=== PATIENT | female | born 1990 | race Caucasian/White ===

== ENCOUNTER 2019-10-20 10:49 | Emergency (ER) | payer MEDICAID, SELFPAY ==
[2019-10-20 10:54] VITALS: PULSE 95; RESP 16; TEMP 36.4; O2SAT 99; BMI 23.8
--- NOTE | 2019-10-20 11:00 | ED_ITS ---
Entered by Haven Albrecht, acting as scribe for HPI - Syncope General: Chief Complaint: Syncope Stated Complaint: Fainted Time Seen by Provider: 10/20/19 10:55 Source: patient Mode of arrival: ambulatory Limitations: no limitations History of Present Illness: HPI narrative: 29 yo Female presents to ED with complaint of syncope. Pt states that she started feeling sick and nauseated so she went to the bathroom and sat down on the toilet. Pt states that she reached for the trash can because she felt like she was going to throw up. Pt states that her vision went out, her hearing went out, and she slid off the toilet and into the floor. Pt states that she didn't hurt herself. Pt states that she has felt fine until she woke up this morning and she has just felt nauseated all morning. Pt states that she was told that her iron was a little low before but she just recenlty had a blood draw done and her iron was up to normal limits. MD complaint: loss of consciousness and felt faint Onset (ago): hour(s) (Just prior to arrival) Prodromal symptoms: nausea/vomiting Witnessed: Yes - by Bystander Context: at rest Injuries sustained associated with event: none Associated symptoms: Reports nausea; Deny abdominal pain, chest pain or fever(s) Treatments prior to arrival: none Review of Systems General: Reports: 10 or more systems reviewed and unremarkable except in HPI and below Const: Denies: fever, chills or body aches Eyes: Denies: change in vision, blurry vision or blind spots ENMT: Denies: throat pain, hoarseness, mouth pain or swelling of lips/tongue Card: Denies: chest pain, palpitations, irregular heart rhythm or swelling of feet/ankles Resp: Denies: shortness of breath, productive cough or non-productive cough GI: Reports: nausea; Denies: abdominal pain or vomiting : Denies: flank pain, difficulty urinating, painful urination, urinary frequency or urinary urgency Musc: Denies: neck pain, back pain, extremity pain or extremity swelling Skin/Breast: Denies: rash, itching or redness Neuro: Reports: other (syncopal episode) Psych: Denies: anxiety or loss of interest Endo: Denies: excessive urination, excessive thirst or tired all the time Efraín/Lymph: Denies: easy bruising or easy bleeding PFSH ED PFSH: Statuses (acute, chronic, etc) shown below reflect problem list status as previously entered and may not be historically accurate Surgical History History of cholecystectomy (Acute) Social History Smoking and tobacco status: never smoked Physical Exam Const: COMMON NORMALS: no apparent distress, average body habitus, oriented x3, no limitations, healthy appearing, alert and well nourished HENMT: COMMON NORMALS: normocephalic, head/scalp atraumatic, hearing grossly normal bilaterally, external ears normal, EAC's normal, TM's normal bilaterally, external nose normal, nasal mucous membranes and turbinates normal, moist oral mucous membranes, oropharynx normal, dentition normal and gingiva normal HEAD & SCALP: normocephalic and atraumatic NOSE: external nose normal and nasal mucous membranes and turbinates normal EXTERNAL EAR: Yes external ears normal EXTERNAL AUDITORY CANAL: EAC's normal TYMPANIC MEMBRANE: TM's normal bilaterally Eye: COMMON NORMALS: PERRL, EOMs intact bilaterally, conjunctivae normal, no scleral icterus, no papilledema, normal visual ulloa by confrontation and fundi normal bilaterally CONJUNCTIVA: Yes conjunctivae normal PUPIL: Yes PERRL DIRECT OPHTHALMOSCOPY: Yes no papilledema and Yes fundi normal bilaterally Neck/C-Spine: COMMON NORMALS: full ROM, no lymphadenopathy, supple, no meningeal signs, no JVD, thyroid normal and no carotid bruits THYROID: thyroid normal Chest: COMMONS NORMALS: inspection of chest normal and palpation of chest normal Resp: COMMON NORMALS: normal respiratory effort, no retractions, no use of accessory muscles, clear to auscultation bilaterally and percussion normal AUSCULTATION: clear to auscultation bilaterally PERCUSSION: percussion normal Cardio: COMMON NORMALS: no JVD, regular rhythm, S1 normal heart sound, S2 normal heart sound, no gallops, no clicks, no murmurs, no rub and peripheral pulses 2+ throughout; negative for regular rate RATE: abnormal rate and tachycardic RHYTHM: regular rhythm HEART SOUNDS: S1 normal and S2 normal PERIPHERAL PULSES: pulses 2+ throughout GI: COMMON NORMALS: normal to inspection, nondistended, normoactive bowel sounds, soft to palpation, non-tender, no hepatosplenomegaly, no masses and no bruits PALPATION: Yes soft and Yes no hepatosplenomegaly : COMMON NORMALS: Yes no CVA tenderness and Yes external appearance normal BLADDER/KIDNEY EXAM: Yes no CVA tenderness Back/Pelvis: COMMON NORMALS: no CVA tenderness, thoracic and lumbar spine normal to inspection, no thoracic nor lumbar tenderness, thoraco-lumbar ROM normal and straight leg raise negative bilaterally Extremity: COMMON NORMALS: normal to inspection, full ROM, normal capillary refill, no joint enlargement, no clubbing, cyanosis or edema, no calf tenderness and no pedal edema Neuro: COMMON NORMALS: oriented x3 SENSORIUM/ORIENTATION: Yes alert MENINGEAL SIGNS: Yes no meningeal signs Skin: COMMON NORMALS: no rashes or lesions noted, no wounds, skin turgor normal, no jaundice, no petechiae and no mottling GENERAL SKIN EXAM: no rashes or lesions noted and turgor normal Course Vital Signs: Vital signs: Vital Signs Temperature 97.5 F L 10/20/19 10:54 Pulse Rate 95 10/20/19 10:54 Respiratory Rate 16 10/20/19 10:54 Blood Pressure 126/78 10/20/19 11:04 Pulse Oximetry 99 10/20/19 10:54 MDM - Syncope Lab Data: Labs: Lab Results 10/20/19 10/20/19 10/20/19 Range/Units 11:05 11:05 11:30 WBC 8.8 (4.0-10.0) 10^3/ uL RBC 3.81 L (4.1-5.3) 10^6/u L Hgb 11.3 L (11.5-15.3) g/dL Hct 34.5 L (37.0-47.0) % MCV 90.6 (81-99) fL MCH 29.7 (28.0-34.0) pg MCHC 32.8 (30.0-36.0) g/dL RDW 12.4 (12.1-15.1) % Plt Count 219 (130-400) 10^3/c mm MPV 9.9 (7.4-10.4) fL Neut % (Auto) 77.8 % Lymph % (Auto) 13.3 % [place] % (Auto) 6.2 % Eos % (Auto) 0.2 % Baso % (Auto) 0.2 % Neut # (Auto) 6.8 (1.8-7.7) 10^3/u L Lymph # (Auto) 1.2 (0.8-4.8) 10^3/u L [place] # (Auto) 0.5 (0.2-0.9) 10^3/u L Eos # (Auto) 0.0 (0.0-0.8) 10^3/u L Baso # (Auto) 0.0 (0.0-0.1) 10^3/u L Nucleated RBC % (a uto) 0 % Nucleated RBCs # 0.0 /100WBC Sodium 135 L (136-145) mmol/L Potassium 3.9 (3.5-5.1) mmol/L Chloride 101 (98-107) mmol/L Carbon Dioxide 22 (22-29) mmol/L Anion Gap 15.9 (5-19) BUN 9 (6-20) mg/dL Creatinine 0.5 (0.5-0.9) mg/dL GFR Calculation 144.9 H (90-130) mL/min Glucose 85 (74-109) mg/dL Calcium 9.1 (8.6-10.0) mg/Dl Total Bilirubin 0.2 (0.15-1.2) mg/dL AST 18 (0-32) U/L ALT 12 (0-33) U/L Alkaline Phosphata se 141 H (35-105) IU/L Total Protein 6.9 (6.6-8.7) g/dL Albumin 3.8 (3.5-5.2) g/dL Globulin 3.1 (1.3-4.6) g/dL TSH 1.44 (0.27-4.20) uIU/ mL Ser , Larry i-Qnt 4969.00 mIU/mL Urine Color Yellow (Yellow) Urine Appearance Sl hazy (CLEAR) Urine pH 7 (5-7) Ur Specific Gravit y 1.015 (1.005-1.030) Urine Protein Neg (Negative) Urine Glucose (UA) Norm (Normal) Urine Ketones Negative (Negative) Urine Occult Blood 2+ H (Negative) Urine Nitrate Negative (Negative) Urine Bilirubin Neg (NEGATIVE) Urine Urobilinogen Norm (Negative) mg/dL Ur Leukocyte Arlene ase Negative (Negative) Urine RBC 10-15 H (0-2) /hpf Urine WBC 5-10 H (0-5) /hpf Ur Squamous Epith Cells 5-10 H (0-5) Amorphous Sediment 1+ Urine Bacteria 1+ H (NONE) Urine Mucus Trace Discharge Plan Discharge Clinical Impression: Syncope Qualifiers: Syncope type: unspecified Qualified Code(s): R55 - Syncope and collapse Currently Qualifiers: Weeks of gestation: 34 weeks Qualified Code(s): Z3A.34 - 34 weeks gestation of Condition: Stable Prescriptions: No Action RF: 0 Discharge Orders: Discharge Order (Routine); Ordered 10/20/19 Ordered By: Brayan Garrett Referrals: Mitra Menchaca, RECRUITING COORDINATOR-C [Primary Care Provider] - Discharge Diet: Usual diet Discharge Activity: Resume usual activity Patient Instructions: Syncope (ED) Coding Level of Care Code ED Supervisor Accounting Clerks for Ch Fwd Exam Problem Focused The documentation recorded by the Trena montanez Carmen, accurately reflects the service I personally performed and the decisions made by , Brayan Garrett DO Oct 20, 2019 10:49
[2019-10-20 11:04] VITALS: BP 126/78
--- NOTE | 2019-10-20 11:12 | USR_ITS ---
PROCEDURE INFORMATION: Exam: US , Limited Exam date and time: 10/20/2019 12:01 PM Age: 29 years old Clinical indication: Lmp or gestational age (in weeks): 33w 4d; Other: Syncope episodes; TECHNIQUE: Imaging protocol: Real-time ultrasound of the maternal uterus with image documentation. Exam focused on the clinical indication. COMPARISON: [facility] OB > 14 weeks 07/16/2019 2:41 PM FINDINGS: GESTATION: Gestation: motion was observed on this examination. Heart rate: 153 Presentation: Single live IUP in cephalic presentation. Placenta: Placenta is posterior and fundal. No evidence of placenta previa. Amniotic fluid: Amniotic fluid pocket measuring 3.6 x 5.4 cm is noted in the left lower quadrant. MATERNAL: Cervix: Cervix is 3.7 cm in length and closed. US/US OB >= 14 weeks fetus [id number] IMPRESSION: Single live IUP.
--- NOTE | 2019-10-20 11:12 | ECG_ITS ---
Measurements Intervals [place] Rate: 90 P: 63 MI: 131 QRS: 57 QRSD: 78 T: 19 QT: 319 QTc: 391 SINUS RHYTHM No previous ECG available for comparison Electronically Signed On 10-20-2019 11:29:11 CLOTH CALENDER by Alejandro Andres M.D. [email or web address]
[2019-10-20 11:30] LABS: Basophils % 0.2 %; Eosinophils % 0.2 %; Hematocrit 34.5 % (37.0-47.0); Hemoglobin 11.3 g/dL (11.5-15.3); Lymphocytes # 1.2 10^3/uL (0.8-4.8); Lymphocytes % 13.3 %; Mean Corpuscular HGB Conc 32.8 g/dL (30.0-36.0); Mean Corpuscular Hemoglobin 29.7 pg (28.0-34.0); Mean Corpuscular Volume 90.6 fL (81-99); Mean Platelet Volume 9.9 fL (7.4-10.4); Monocytes # 0.5 10^3/uL (0.2-0.9); Monocytes % 6.2 %; Neutrophils # 6.8 10^3/uL (1.8-7.7); Neutrophils % 77.8 %; Nucleated Red Blood Cells % 0 %; Platelet Count 219 10^3/cmm (130-400); Red Blood Count 3.81 10^6/uL (4.1-5.3); Red Cell Distribution Width 12.4 % (12.1-15.1); White Blood Count 8.8 10^3/uL (4.0-10.0)
[2019-10-20] MEDS: sodium chloride 0.9% 1,000 ML 999 ML IV (11:35)
[2019-10-20 12:06] LABS: Add Urine Microscopic? YES; Bilirubin Urine Neg (NEGATIVE); Blood Urine 2+ (Negative); Glucose Urine UA Norm (Normal); Ketones Urine Negative (Negative); Leukocyte Esterase Urine Negative (Negative); Nitrate Urine Negative (Negative); Protein Urine Neg (Negative); Specific Gravity, Urine 1.015 (1.005-1.030); Urine Appearance SL Hazy (CLEAR); Urine Color Yellow (Yellow); Urobilinogen Urine Norm (Negative); pH Urine 7 (5-7)
[2019-10-20 12:06] LABS: Thyroid Stimulating Hormone 1.44 uIU/mL (0.27-4.20)
[2019-10-20 12:08] LABS: Mucus Urine TRACE
[2019-10-20 12:09] LABS: Amorphous Sediment Urine 1+; Bacteria Urine 1+
[2019-10-20 12:15] LABS: Add Urine Culture? Yes
[2019-10-20 12:17] LABS: Alanine Aminotransferase 12 U/L (0-33); Albumin Level 3.8 g/dL (3.5-5.2); Alkaline Phosphatase 141 IU/L (35-105); Anion Gap 15.9 (5-19); Aspartate Amino Transferase 18 U/L (0-32); Blood Urea Nitrogen 9 mg/dL (6-20); Calcium 9.1 mg/Dl (8.6-10.0); Carbon Dioxide 22 mmol/L (22-29); Chloride 101 mmol/L (98-107); Globulin 3.1 g/dL (1.3-4.6); Glomerular Filtration Rate 144.9 mL/min (90-130); Glucose 85 mg/dL (74-109); Potassium 3.9 mmol/L (3.5-5.1); Sodium 135 mmol/L (136-145); Total Bilirubin 0.2 mg/dL (0.15-1.2); Total Protein 6.9 g/dL (6.6-8.7)
[2019-10-20 13:07] VITALS: BP 118/64; PULSE 72; RESP 18; O2SAT 98
== END 2019-10-20 13:09 ==
PROVIDERS: Emergency Provider Family Medicine; Family Provider Nurse Practitioner; PCP Nurse Practitioner
DX: O26.893 Other specified pregnancy related conditions, third trimester (principal); R55 Syncope and collapse; Z3A.34 34 weeks gestation of pregnancy
CPT/HCPCS: 76805; 80053; 81003; 84443; 84702; 85025; 87086; 93005; 96360; 99282; J7030

== ENCOUNTER 2019-11-01 21:22 | Outpatient (CLI) | payer MEDICAID, SELFPAY ==
[2019-11-01] VITALS (13 sets, daily range): BP systolic 129–131; BP diastolic 79–87; PULSE 81–135; RESP 15–18; TEMP 36.6–36.7; O2SAT 98–100; BMI 24.6
[2019-11-01] MEDS: lactated ringers 1,000 ML 999 ML IV (22:46)
[2019-11-01] MEDS: terbutaline 1 mg/mL INJ 0.25 MG SUBCUT (22:46)
== END 2019-11-01 23:38 | disposition home or self-care (01) ==
LOC: OPOB 21:39 → OBGYN 23:33 → OPOB 11-02 08:55
PROVIDERS: Absent Provider Family Medicine; Family Provider Nurse Practitioner; PCP Nurse Practitioner; Visit Provider Family Medicine
DX: O26.899 Other specified pregnancy related conditions, unspecified trimester (principal); Z3A.00 Weeks of gestation of pregnancy not specified; R10.9 Unspecified abdominal pain
CPT/HCPCS: 59025; 96372; 99211; J3105

== ENCOUNTER 2019-11-28 01:00 | Inpatient (IN) | payer MEDICAID, SELFPAY ==
[2019-11-28] VITALS (106 sets, daily range): BP systolic 0–142; BP diastolic 0–96; PULSE 76–229; RESP 15–18; TEMP 36.3–36.8; O2SAT 92–100
[2019-11-28 01:40] LABS: Basophils % 0.2 %; Eosinophils % 0.2 %; Hematocrit 37.8 % (37.0-47.0); Hemoglobin 12.3 g/dL (11.5-15.3); Lymphocytes # 1.8 10^3/uL (0.8-4.8); Lymphocytes % 14.5 %; Mean Corpuscular HGB Conc 32.5 g/dL (30.0-36.0); Mean Corpuscular Hemoglobin 28.3 pg (28.0-34.0); Mean Corpuscular Volume 87.1 fL (81-99); Mean Platelet Volume 10.3 fL (7.4-10.4); Monocytes # 0.7 10^3/uL (0.2-0.9); Neutrophils # 9.4 10^3/uL (1.8-7.7); Neutrophils % 77.9 %; Nucleated Red Blood Cells % 0 %; Platelet Count 228 10^3/cmm (130-400); Red Blood Count 4.34 10^6/uL (4.1-5.3); Red Cell Distribution Width 12.2 % (12.1-15.1); White Blood Count 12.1 10^3/uL (4.0-10.0)
--- NOTE | 2019-11-28 03:22 | P.ANESASSM_ITS ---
Pre-Anesthetic Assessment Pre-Anesthetic Assessment: Height/Weight: Height 1.73 m Temp Pulse BP Pulse Ox 98.0 F 97 121/76 93 11/28/19 01:14 11/28/19 03:20 11/28/19 03:20 11/28/19 03:09 Preop Diagnosis: Labor pain Proposed Procedure: Labor epidural Was Beta Gladys taken within 24 hours: N/A Last intake: 21 Last Intake: 18:00 Social: Social History: No alcohol and No tobacco Exam: Pre-Anes Outpt Exam: alert, oriented x 3 and clear to auscultation bilaterally Airway: Submandibular: WNL MP: 2 Pulmonary: Pulmonary: None reported CV/HEM: CV/HEM: None reported : : None reported Hepatic: Hepatic: None reported GI: GI: GERD Metabolic: Metabolic: None reported Musc/skel: Musc/skel: None reported Neuropsych: Neuropsych: None reported Anesthetic Plan: ASA status: 2 Anesthesia: Anesthesia Evaluation, Eval. for regional block and Regional (specify below) PFSH Anesthesia PFSH: Social History Smoking and tobacco status: never smoked Female Reproductive History: : 3 Data Anesthesia CBC & Chem 7: 11/28/19 01:25 Other Labs: Laboratory Results - last 48 hr 11/28/19 01:25 WBC 12.1 H RBC 4.34 Hgb 12.3 Hct 37.8 MCV 87.1 MCH 28.3 MCHC 32.5 RDW 12.2 Plt Count 228 MPV 10.3 Neut % (Auto) 77.9 Lymph % (Auto) 14.5 [place] % (Auto) 6.0 Eos % (Auto) 0.2 Baso % (Auto) 0.2 Neut # (Auto) 9.4 H Lymph # (Auto) 1.8 [place] # (Auto) 0.7 Eos # (Auto) 0.0 Baso # (Auto) 0.0 Nucleated RBC % (auto) 0 Nucleated RBCs # 0.0 Cardiac Studies: No Data to Display Anesthesia Procedures Date of Procedure: 11/28/19 Epidural: Time Out Performed: Yes Consents Signed: Procedure Consent Consent: requested by attending/covering physician, from patient, risks and benefits reviewed and patient agrees to proceed Lumbar Level: L3-L4 Epidural position: sitting Epidural procedure: sterile prep of area, 1% lidocaine to numb the area (3 cc skin wheel), 18 g needle (L3-L4 interspace), neg for paresthesia, test dose given, 1.5% xylocaine 1:200k epi (@03:03), 0.2% Ropivacaine bolus ml (8 cc), placed PCEA, no systemic response, sterile dressing applied and 0.2% Ropiavacaine @ mls/hr (13 mls/hr with 5 cc Q 10 min x 3) Additional Comments: NICKY @ 6 cm, catheter threaded to 11 cm at skin. VSS see OBIX system
[2019-11-28] MEDS: dextrose 5%-lactated ringers 1,000 ML 125 ML IV (08:15)
--- NOTE | 2019-11-28 08:20 | P.PCNOB_ITS ---
Delivery Note: Date of delivery: November 28, 2019 Pre-Delivery Course: This is a 29-year-old at 39 weeks 1 day gestation who presented to labor and delivery with spontaneous rupture of membranes. Delivery: Rupture of membranes was approximately 8 hours prior to delivery with clear fluid. She received an epidural for pain management. Her labor progressed well on its own. She had a normal spontaneous vaginal delivery of a viable female infant weight 7 pounds 1 ounce, 3215gm Apgars were 8 and 9 over an intact perineum. The infant was suctioned at delivery and placed on the mother's chest. The cord was clamped and cut. The placenta was delivered grossly intact and normal to inspection. There were no lacerations. Estimated blood loss 150 mL Post-Delivery Status: Mother and were doing well after delivery A&P Assessment and plan (1) Normal spontaneous vaginal delivery: Routine care Status: Acute Code(s): O80 - Encounter for full-term uncomplicated delivery Coding Level of Care Code Acute Porter Sample Case for Chg Fwd Diagnoses Normal spontaneous vaginal delivery O80
[2019-11-28] MEDS: oxytocin 30 UNIT/500 ML BAG 600 UNIT IV (08:48)
[2019-11-28] MEDS: docusate sodium 100 mg Capsule PO ×2 (10:17→18:21)
[2019-11-28] MEDS: prenatal vitamin Capsule 1 CAP PO (10:17)
--- NOTE | 2019-11-28 11:36 | PC.NURSE ---
PT REPORTS BABY IS WELL. I'LL SEE THEM TOMORROW.
[2019-11-28 20:29] LABS: Hematocrit 31.7 % (37.0-47.0); Hemoglobin 10.1 g/dL (11.5-15.3); Mean Corpuscular HGB Conc 31.9 g/dL (30.0-36.0); Mean Corpuscular Hemoglobin 28.3 pg (28.0-34.0); Mean Corpuscular Volume 88.8 fL (81-99); Mean Platelet Volume 10.3 fL (7.4-10.4); Platelet Count 187 10^3/cmm (130-400); Red Blood Count 3.57 10^6/uL (4.1-5.3); Red Cell Distribution Width 12.3 % (12.1-15.1); White Blood Count 11.2 10^3/uL (4.0-10.0)
[2019-11-29 02:06] VITALS: BP 109/71; PULSE 81; RESP 16; TEMP 36.8
[2019-11-29] MEDS: docusate sodium 100 mg Capsule PO (09:42)
[2019-11-29 09:46] VITALS: BP 120/81; PULSE 71; RESP 16; TEMP 36.6
--- NOTE | 2019-11-29 12:44 | ANE.PACU2 ---
 Inpatient post-anesthesia follow up: Airway intact: Yes Vital signs: Temperature 98 F Pulse Rate 71 Respiratory Rate 16 Blood Pressure 120/81 Pulse Oximetry 97 Oxygen Delivery Me thod Room Air Oxygen Flow Rate Fraction of Inspir ed Oxygen Hydration adequate: Yes Nausea and vomiting: No Pain level: 1 Mental status: Baseline Additional Comments: no signs of infection, no headaches, no lower extremity weakness
--- NOTE | 2019-11-29 12:52 | PM.OBGYDC ---
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 She had a normal spontaneous vaginal delivery of a viable female infant. On day #1 she was doing well. She had no pain. She was ambulating, tolerating a regular diet, and said that she had minimal vaginal bleeding. She was comfortable with discharge home. Information Peripartum Data: Delivery Method: Vaginal Physical Exam Const: COMMON NORMALS: no apparent distress and healthy appearing HENMT: COMMON NORMALS: normocephalic HEAD & SCALP: normocephalic Eye: COMMON NORMALS: PERRL and EOMs intact bilaterally PUPIL: Yes PERRL Resp: COMMON NORMALS: normal respiratory effort and clear to auscultation bilaterally AUSCULTATION: clear to auscultation bilaterally Cardio: COMMON NORMALS: regular rhythm and no murmurs RHYTHM: regular rhythm GI: COMMON NORMALS: soft to palpation (Fundus firm U- 3), non-tender, no hepatosplenomegaly, no masses and no bruits PALPATION: Yes soft (Fundus firm U- 3) and Yes no hepatosplenomegaly Extremity: COMMON NORMALS: no calf tenderness and no pedal edema Discharge Data Data Completed and Pending: Labs from last 24 hours 11/28/19 20:22 WBC 11.2 H RBC 3.57 L Hgb 10.1 L Hct 31.7 L MCV 88.8 MCH 28.3 MCHC 31.9 RDW 12.3 Plt Count 187 MPV 10.3 Vitals: Last Vital Signs Temp 98 F 11/29/19 09:46 Pulse 71 11/29/19 09:46 Resp 16 11/29/19 09:46 BP 120/81 11/29/19 09:46 Pulse Ox 97 11/28/19 16:25 Discharge Plan Discharge Patient Disposition: Home, Self-Care Condition: Stable Prescriptions: Continued 1 tab PO DAILY RF: 0 iron 325 mg (65 mg iron) Tablet 325 mg PO DAILY RF: 0 Discharge Orders: Discharge Order (Routine); Ordered 11/29/19 Ordered By: Berenice Curtis Referrals: Berenice Curtis MD [Physician] - 1 month Discharge Diet: Usual diet Discharge Activity: Limit activity as instructed Patient Instructions: Vaginal Delivery (DC), OB Discharge Report, OB Food/Drug Interaction Guide 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
[2019-11-29 14:02] VITALS: BP 115/71; PULSE 86; RESP 16; TEMP 36.6
--- NOTE | 2019-11-29 14:38 | PC.NURSE ---
Patient refused MMR vaccine. Patient educated on risks and benefits and decides to decline at this time.
== END 2019-11-29 14:35 | disposition home or self-care (01) | DRG 807 ==
LOC: OBGYN 09:01 → OPOB 09:01
PROVIDERS: Admitting Provider Family Medicine; Family Provider Nurse Practitioner; PCP Nurse Practitioner; Visit Provider Family Medicine
DX: O80 Encounter for full-term uncomplicated delivery (principal); Z37.0 Single live birth; Z3A.39 39 weeks gestation of pregnancy
CPT/HCPCS: 12345; 36415; 59409; 83986; 85025; 85027; 99211; J2795

== ENCOUNTER 2021-06-10 13:19 | Emergency (ER) | payer MEDICAID, SELFPAY ==
[2021-06-10 14:15] VITALS: BP 137/96; PULSE 85; RESP 18; TEMP 37; O2SAT 99; BMI 21.4
--- NOTE | 2021-06-10 14:33 | XR_ITS ---
WS: [id number] Portable AP upright chest, 06/10/2021 Clinical Data: SOB Comparison: PA chest, 03/23/2017. Findings: No nodules, masses or effusions are seen. The heart is normal. The pulmonary vascularity is not increased. No pneumonia or pneumothorax is seen. XR/XR chest 1V portable [id number] Impression: Negative chest.
[2021-06-10 17:14] LABS: SARS Covid-2 Antigen Positive (Negative)
--- NOTE | 2021-06-10 18:31 | W.ED.SOB ---
HPI - SOB/Dyspnea General: Chief Complaint: Shortness of Breath/Dyspnea Stated Complaint: Weak, dizzy, SOB Time Seen by Provider: 06/10/21 18:10 Source: patient Mode of arrival: ambulatory Limitations: no limitations History of Present Illness: HPI Narrative: 30-year-old female states she believes she is Covid as her whole family had Covid. States over the last 5 days she has had fever body aches nausea and a slight cough. Patient here is comfortable. She denies any worsening improving factors. Denies any diarrhea. Associated symptoms: Reports fever(s), nausea and vomiting; Deny chest pain Review of Systems Const: Reports: fever(s), chills and body aches Eyes: Denies: blurry vision or eye discomfort ENMT: Denies: throat pain or dental pain Card: Denies: chest pain Resp: Reports: non-productive cough GI: Reports: nausea and vomiting : Denies: dysuria Musc: Denies: neck pain or back pain Skin/Breast: Denies: rash Neuro: Denies: headache(s) Psych: Denies: depression Efraín/Lymph: Denies: easy bruising All/Imm: Denies: urticaria PFSH ED PFSH: Surgical History History of cholecystectomy Social History Smoking and tobacco status: never smoked Course Vital Signs: Vital signs: Vital Signs Temperature 98.6 F 06/10/21 14:15 Pulse Rate 85 06/10/21 14:15 Respiratory Rate 18 06/10/21 14:15 Blood Pressure 137/96 06/10/21 14:15 Pulse Oximetry 99 06/10/21 14:15 MDM - SOB/Dyspnea MDM Narrative: Medical decision making narrative: Patient presents here with Covid likely causing her symptoms. She is well-appearing here in no distress. X-ray here is normal. We will start her on Medrol Dosepak and Zofran she is stable for discharge. She is to follow-up with her PCP and return if worsening pain Lab Data: Labs: Lab Results 06/10/21 Range/Units 15:41 SARS-CoV-2 Ag (Rap id) Positive H (Negative) Imaging Data^: CXR: Attestation: I personally reviewed and interpreted this imaging study as follows: My impression: no acute abnormality Discharge Plan Discharge Patient Disposition: Home Clinical Impression: COVID-19 Condition: Stable Prescriptions: New ondansetron 4 mg tablet,disintegrating 4 mg PO Q6H PRN (Reason: nausea and vomiting) Qty: 14 RF: 0 Medrol (Joseluis) 4 mg tablets,dose pack See Rx Instructions .ROUTE .COMPLEX Qty: 21 RF: 0 No Action 1 tab PO DAILY RF: 0 iron 325 mg (65 mg iron) Tablet 325 mg PO DAILY RF: 0 Discharge Orders: Discharge ED (Routine); Ordered 06/10/21 Ordered By: Betty Whitehead Referrals: Mitra Menchaca, PHARMACY LABORATORY TECHNICIAN-C [Primary Care Provider] - 1-3 days Discharge Diet: Advance as tolerated Discharge Activity: Resume usual activity Patient Instructions: Viral Syndrome (ED) Coding Level of Care Code ED Coat Operator for Misty Arciniega
== END 2021-06-10 18:43 | disposition home or self-care (01) ==
PROVIDERS: Physician Assistant; Emergency Provider Emergency Medicine; PCP Nurse Practitioner
DX: U07.1 COVID-19 (principal)
CPT/HCPCS: 71045; 87426; 99281

== ENCOUNTER 2021-06-13 13:07 | Emergency (ER) | payer MEDICAID, SELFPAY ==
[2021-06-13 13:20] VITALS: BP 126/89; PULSE 119; RESP 18; TEMP 37.3; O2SAT 99; BMI 20.7
--- NOTE | 2021-06-13 14:14 | ECG_ITS ---
[facility] Test Date: 2021-06-13 Pat Name: Ivette Reaves Department: Room: Gender: Female Chief Technology Officer: : 1990 Requested By: Edilberto Taylor Order Number: [id number] Rucker MD: Chuyita Camejo M.D. Measurements Intervals [place] Rate: 88 P: 72 [place]: 123 QRS: 78 QRSD: 89 T: 48 QT: 355 QTc: 431 Interpretive Statements SINUS RHYTHM POSSIBLE LEFT ATRIAL ENLARGEMENT [-0.1mV P-WAVE IN V1/V2] Compared to ECG 10/20/2019 11:25:19 No significant changes Electronically Signed On 06-15-2021 19:17:13 CDT by Chuyita Camejo M.D. [id number]
--- NOTE | 2021-06-13 14:15 | ED_ITS ---
HPI - COVID General: Chief Complaint: Nausea/Vomiting/Diarrhea Stated Complaint: COVID (+): N/V, IRREGULAR HEART RATE Time Seen by Provider: 06/13/21 14:10 Triage information: Has fever, cough or shortness of breath . Exposure to COVID + person last 14 days History of Present Illness: HPI Narrative: Patient complains of not feeling good for 7 days. States she not been able eat for 4 days and she feels weak and that her heart rate was irregular today she did not take her methylprednisone. Says she not been able to take a lot of fluids feels dizzy when she stands up. complaint: known COVID positive Prior covid testing: yes, results known Prior testing date: 06/11/21 COVID 19 common symptoms: positive chills, fatigue, body aches, headache(s), loss of sense of smell and/or taste, throat pain, nausea, vomiting and diarrhea; negative non-productive cough, productive cough or dyspnea COVID 19 other sytmptoms: negative chest pain Onset (ago): day(s) (Seven) Severity: moderate COVID Results: SARS-CoV-2 Antigen (Rapid) Positive (Negative) H 06/10/21 15:41 06/10/21 Review of Systems Const: Reports: chills, body aches and fatigue Eyes: Denies: change in vision or blurry vision ENMT: Reports: throat pain Card: Denies: chest pain or dyspnea on exertion Resp: Denies: dyspnea, productive cough or non-productive cough GI: Reports: nausea, vomiting and diarrhea Musc: Denies: extremity pain Skin/Breast: Denies: rash Neuro: Reports: headache(s) Psych: Denies: anxiety or depression Efraín/Lymph: Denies: easy bruising PFSH ED PFSH: Surgical History History of cholecystectomy Social History Smoking and tobacco status: never smoked Physical Exam Const: COMMON NORMALS: no acute distress, average body habitus and patient oriented x3 HENMT: COMMON NORMALS: normocephalic HEAD & SCALP: normal to inspection and normocephalic FACE & SINUS: normal facial exam Eye: COMMON NORMALS: conjunctivae normal GENERAL EYE: appearance normal, both eyes and all related structures CONJUNCTIVA: Yes conjunctivae normal Neck/C-Spine: COMMON NORMALS: no JVD Chest: COMMONS NORMALS: normal inspection of the chest Resp: COMMON NORMALS: normal respiratory effort and clear to auscultation bilaterally AUSCULTATION: clear to auscultation bilaterally Cardio: COMMON NORMALS: no JVD, regular rate and regular rhythm RATE: regular rate RHYTHM: regular rhythm GI: COMMON NORMALS: Normal to inspection, nondistended, normoactive bowel sounds present Extremity: COMMON NORMALS: normal to inspection and full ROM Neuro: COMMON NORMALS: patient oriented x3 Course Vital Signs: Vital signs: Vital Signs Temperature 99.2 F 06/13/21 13:20 Pulse Rate 88 06/13/21 16:27 Respiratory Rate 16 06/13/21 16:27 Blood Pressure 113/75 06/13/21 16:27 Pulse Oximetry 99 06/13/21 16:27 MDM - COVID MDM Narrative: Medical decision making narrative: Patient diagnosed with Covid with generalized anxiety. Patient responded well to medications EKG was good labs showed increased white count chemistries were good. Patient is provided antinausea medicine and was given hydroxyzine to help with her anxiety feeling. Patient encouraged follow-up with her primary care provider. Patient states she does not take prednisone due to the fact that she has had adverse reactions to it such as increased heart rate. Lab Data: Labs: Lab Results 06/13/21 06/13/21 Range/Units 14:39 14:39 WBC 5.4 (4.0-10.0) 10^3/ uL RBC 5.12 (4.1-5.3) 10^6/u L Hgb 15.6 H (11.5-15.3) g/dL Hct 47.2 H (37.0-47.0) % MCV 92.2 (81-99) fl MCH 30.5 (28.0-34.0) pg MCHC 33.1 (30.0-36.0) g/dL RDW 11.4 L (12.1-15.1) % Plt Count 207 (130-400) 10^3/c mm MPV 10.8 H (7.4-10.4) fL Neut % (Auto) 70.4 % Lymph % (Auto) 22.7 % Hopkins % (Auto) 5.9 % Eos % (Auto) 0.4 % Baso % (Auto) 0.4 % Neut # (Auto) 3.81 (1.8-7.7) 10^3/u L Lymph # (Auto) 1.2 (0.8-4.8) 10^3/u L Hopkins # (Auto) 0.3 (0.2-0.9) 10^3/u L Eos # (Auto) 0.0 (0.0-0.8) 10^3/u L Baso # (Auto) 0.0 (0.0-0.1) 10^3/u L Nucleated RBC % (a uto) 0 % Nucleated RBCs # 0.0 /100WBC Sodium 141 (136-145) mmol/L Potassium 3.7 (3.5-5.1) mmol/L Chloride 104 (98-107) mmol/L Carbon Dioxide 24 (22-29) mmol/L Anion Gap 16.7 (5-19) BUN 8 (6-20) mg/dL Creatinine 0.5 (0.5-0.9) mg/dL GFR Calculation 143.9 H (90-130) mL/min Glucose 83 (65-115) mg/dL Calculated Osmolal ity 289 (285-295) mOsm/k g Calcium 9.0 (8.5-10.5) mg/dL Total Bilirubin 0.3 (0.15-1.2) mg/dL AST 18 (0-32) U/L ALT 31 (0-33) U/L Alkaline Phosphata se 50 (35-105) IU/L Total Protein 8.0 (6.6-8.7) g/dL Albumin 4.5 (3.5-5.2) g/dL Globulin 3.5 (1.3-4.6) g/dL Lipase 45 (13-60) U/L EKG Data: EKG 1: EKG interpretation date: 06/13/21 EKG interpretation time: 15:05 Computer generated interpretation: Ventricular rate 88 bpm NE interval 123 ms QRS duration 89 ms QT 355 ms sinus rhythm COVID Results: SARS-CoV-2 Antigen (Rapid) Positive (Negative) H 06/10/21 15:41 06/10/21 Discharge Plan Discharge Patient Disposition: Home Clinical Impression: COVID-19, Anxiety Condition: Stable Prescriptions: New Zofran 4 mg tablet 4 mg PO Q8H 3 Days Qty: 9 RF: 0 hydroxyzine HCl 25 mg tablet 25 mg PO TID PRN (Reason: anxiety) Qty: 7 RF: 0 No Action ondansetron 4 mg tablet,disintegrating 4 mg PO Q6H PRN (Reason: nausea and vomiting) Qty: 14 RF: 0 methylprednisolone [Medrol (Joseluis)] 4 mg tablets,dose pack See Rx Instructions .ROUTE .COMPLEX Qty: 21 RF: 0 Discharge Orders: Discharge ED (Routine); Ordered 06/13/21 Ordered By: Edilberto Taylor Referrals: Mtira Menchaca, [employer] [Primary Care Provider] - Discharge Diet: Advance as tolerated Discharge Activity: Increase activity as tolerated Patient Instructions: Viral Syndrome (ED) Activity Restrictions/Additional Instructions: Follow-up with medical provider as directed. Take medications as prescribed. Return to the ER or your medical provider if condition worsens. Please read and understand discharge instructions. If any questions ask please. Coding Level of Care Code ED Revenue Settlements Administrator for Misty Fwd Exam Comprehensive
[2021-06-13] MEDS: sodium chloride 0.9% 1,000 ML 999 ML IV ×2 (14:41)
[2021-06-13] MEDS: ondansetron 2 mg/ML SDV 2 mL 8 MG IVP (14:41)
[2021-06-13 14:47] VITALS: BP 127/82; PULSE 93; RESP 16; O2SAT 99
--- NOTE | 2021-06-13 14:48 | PC.NURSE ---
patient denied any cough, shortness of breath or pain at this time. c/o weakness. no acute distress noted.
[2021-06-13 15:20] LABS: Basophils % 0.4 %; Eosinophils % 0.4 %; Hematocrit 47.2 % (37.0-47.0); Hemoglobin 15.6 g/dL (11.5-15.3); Lymphocytes # 1.2 10^3/uL (0.8-4.8); Lymphocytes % 22.7 %; Mean Corpuscular HGB Conc 33.1 g/dL (30.0-36.0); Mean Corpuscular Hemoglobin 30.5 pg (28.0-34.0); Mean Corpuscular Volume 92.2 fl (81-99); Mean Platelet Volume 10.8 fL (7.4-10.4); Monocytes # 0.3 10^3/uL (0.2-0.9); Monocytes % 5.9 %; Neutrophils # 3.81 10^3/uL (1.8-7.7); Neutrophils % 70.4 %; Nucleated Red Blood Cells % 0 %; Platelet Count 207 10^3/cmm (130-400); Red Blood Count 5.12 10^6/uL (4.1-5.3); Red Cell Distribution Width 11.4 % (12.1-15.1); White Blood Count 5.4 10^3/uL (4.0-10.0)
[2021-06-13 15:57] LABS: Alanine Aminotransferase 31 U/L (0-33); Albumin Level 4.5 g/dL (3.5-5.2); Alkaline Phosphatase 50 IU/L (35-105); Anion Gap 16.7 (5-19); Aspartate Amino Transferase 18 U/L (0-32); Blood Urea Nitrogen 8 mg/dL (6-20); Carbon Dioxide 24 mmol/L (22-29); Chloride 104 mmol/L (98-107); Globulin 3.5 g/dL (1.3-4.6); Glomerular Filtration Rate 143.9 mL/min (90-130); Glucose 83 mg/dL (65-115); Lipase 45 U/L (13-60); Osmolality Calculated 289 mOsm/kg (285-295); Potassium 3.7 mmol/L (3.5-5.1); Sodium 141 mmol/L (136-145); Total Bilirubin 0.3 mg/dL (0.15-1.2)
[2021-06-13 16:00] VITALS: BP 113/76; PULSE 102; RESP 18; O2SAT 100
[2021-06-13 16:27] VITALS: BP 113/75; PULSE 88; RESP 16; O2SAT 99
== END 2021-06-13 16:30 | disposition home or self-care (01) ==
PROVIDERS: Emergency Medicine; Emergency Provider Nurse Practitioner Family; PCP Nurse Practitioner
DX: U07.1 COVID-19 (principal); F41.9 Anxiety disorder, unspecified
CPT/HCPCS: 80053; 83690; 85025; 93005; 96361; 96374; 99284; J2405; J7030